=== PATIENT | male | born 1965 | race Caucasian/White ===

== ENCOUNTER 2019-06-07 21:11 | Inpatient (IN) | payer MEDICAID ==
[~2019-06-07] VITALS: Ht 180.3 cm; Wt 76.0 kg
[2019-06-07 22:24] LABS: GLUCOSE,POINT OF CARE 131 MG/DL (70-110)
[2019-06-08 00:40] LABS: BASOPHILS % (AUTO) 2.5 % (0.0-2.0); EOSINOPHILS % (AUTO) 1.8 % (1.0-6.0); HEMATOCRIT 24.6 % (41-53); HEMOGLOBIN 7.5 g/dL (13.5-17.5); LYMPHOCYTES # (AUTO) 1.4 K/uL (1.0-4.8); LYMPHOCYTES % (AUTO) 20.1 % (22.0-44.0); MEAN CORPUSCULAR HGB CONC 30.7 G/dL (31.0-37.0); MEAN CORPUSCULAR VOLUME 72 fL (80-100); MONOCYTES # (AUTO) 0.7 K/uL (0.1-1.0); MONOCYTES % (AUTO) 10.9 % (2.0-9.0); NEUTROPHILS # (AUTO) 4.4 K/uL (1.8-7.7); NEUTROPHILS % (AUTO) 64.7 % (40.0-70.0); PLATELET COUNT (AUTO) 194 K/uL (150-450); RED BLOOD CELL COUNT(AUTO) 3.42 MIL/uL (4.50-5.90); RED CELL DISTRIBUTION WIDTH 26.6 % (11.5-14.5)
[2019-06-08 00:43] LABS: CALCIUM, TOTAL 8.2 mg/dL (8.8-10.5); CREATININE 4.91 mg/dL (0.60-1.30); POTASSIUM 4.7 mmol/L (3.5-5.1)
[2019-06-08 00:45] LABS: INR 1.1 (0.9-1.1)
[2019-06-08 01:08] LABS: BILIRUBIN,TOTAL 0.2 mg/dL (0.1-1.0); TOTAL PROTEIN, SERUM 7.9 g/dL (6.4-8.2)
[2019-06-08] MEDS ORDERED: 0.9% SODIUM CHLORIDE 10 ML SYRINGE IVP PRN (01:15)
[2019-06-08] MEDS ORDERED: ACETAMINOPHEN 325 MG TABLET PO PRN ×2 (01:15→05:45)
[2019-06-08] MEDS ORDERED: ONDANSETRON HCL 4 MG/2 ML VIAL IVP PRN (01:15)
[2019-06-08 01:49] LABS: APPEARANCE,URINE CLEAR (CLEAR); BILIRUBIN,URINE NEGATIVE (NEGATIVE); GLUCOSE, URINE (UA) 100 mg/dL (NEGATIVE); KETONES,URINE NEGATIVE (NEGATIVE); LEUKOCYTE ESTERASE ,URINE NEGATIVE (NEGATIVE); NITRATE,URINE NEGATIVE (NEGATIVE); OCCULT BLOOD,URINE LARGE (NEGATIVE); PH,URINE 7.5 (5.0-8.0); PROTEIN,URINE SEE CONFIRM (NEGATIVE); UROBILINOGEN,URINE 0.2 mg/dL (<=1.0)
[2019-06-08 01:55] LABS: BACTERIA,URINE None Seen /HPF (None Seen); RBC,URINE 51-100 /HPF (0-2); SQUAMOUS EPITHELIAL CELL,UR Rare /LPF (None Seen); SULFOSALICYLIC ACID,URINE 4+ (Negative); WBC,URINE 0-2 /HPF (0-5)
[2019-06-08] MEDS ORDERED: LORazepam 2 MG/ML VIAL IVP ONE (03:15)
[2019-06-08] MEDS ORDERED: QUEtiapine FUMARATE 25 MG TABLET PO ONE (03:30)
[2019-06-08] MEDS ORDERED: DOXYCYCLINE HYCLATE 100 MG in DEXTROSE 5%-WATER 100 ML IV ONE (04:45)
[2019-06-08] MEDS ORDERED: CefTRIAXone 1 GM/DEXTROSE 50 ML IV ONE (04:45)
[2019-06-08] MEDS ORDERED: TraZODone HCL 50 MG TABLET PO ONE (04:45)
[2019-06-08] MEDS ORDERED: OxyCODONE HCL/ACETAMINOPHEN 5-325 MG TABLET PO ONE (04:45)
[2019-06-08] MEDS ORDERED: BISACODYL 10 MG RECTAL RECTAL SUPPOSITORY PR PRN (05:45)
[2019-06-08] MEDS: DOCUSATE SODIUM 100 MG CAPSULE PO SCH ×2 (09:00→20:39)
[2019-06-08] MEDS: HEPARIN SODIUM,PORCINE 5,000 UNITS/ML VIAL SQ SCH ×2 (09:00→20:40)
[2019-06-08] MEDS: FAMOTIDINE 20 MG TABLET PO SCH (09:00)
[2019-06-08 09:08] VITALS: BP 139/93
[2019-06-08] MEDS ORDERED: HYDROCODONE/ACETAMINOPHEN 5-325 MG TABLET PO PRN (09:15)
[2019-06-08 11:32] VITALS: BP 142/75
[2019-06-08] MEDS: SODIUM BICARBONATE 100 MEQ in SODIUM CHLORIDE 0.45% 1,000 ML IV SCH (14:54)
[2019-06-08] MEDS: QUEtiapine FUMARATE 25 MG TABLET PO SCH ×2 (15:53→20:39)
[2019-06-08 16:36] VITALS: BP 129/74
[2019-06-08 21:45] VITALS: BP 142/81
[2019-06-09] MEDS: SODIUM BICARBONATE 100 MEQ in SODIUM CHLORIDE 0.45% 1,000 ML IV SCH ×2 (03:10→20:13)
[2019-06-09 06:18] VITALS: BP 158/79
[2019-06-09 07:48] VITALS: BP 137/71
[2019-06-09] MEDS: FAMOTIDINE 20 MG TABLET PO SCH (07:59)
[2019-06-09] MEDS: VITAMIN B COMP/VIT C/FOLIC ACID CAPSULE PO SCH (07:59)
[2019-06-09] MEDS: DOCUSATE SODIUM 100 MG CAPSULE PO SCH ×2 (07:59→20:23)
[2019-06-09] MEDS: QUEtiapine FUMARATE 25 MG TABLET PO SCH (07:59)
[2019-06-09] MEDS: HEPARIN SODIUM,PORCINE 5,000 UNITS/ML VIAL SQ SCH ×2 (08:00→20:29)
[2019-06-09 09:04] LABS: AMPHET/METH SCREEN,URINE NEGATIVE (NEGATIVE); BARBITURATE SCREEN, URINE NEGATIVE (NEGATIVE); BENZODIAZEPINES SCREEN,URINE NEGATIVE (NEGATIVE); CANNABINOID SCREEN,URINE NEGATIVE (NEGATIVE); COCAINE SCREEN,URINE NEGATIVE (NEGATIVE); METHADONE SCREEN, URINE NEGATIVE (NEGATIVE); OPIATE SCREEN,URINE POSITIVE (NEGATIVE)
[2019-06-09 09:05] LABS: BASOPHILS % (AUTO) 2.1 % (0.0-2.0); EOSINOPHILS % (AUTO) 1.9 % (1.0-6.0); HEMATOCRIT 24.9 % (41-53); HEMOGLOBIN 7.8 g/dL (13.5-17.5); LYMPHOCYTES # (AUTO) 1.4 K/uL (1.0-4.8); LYMPHOCYTES % (AUTO) 22.1 % (22.0-44.0); MEAN CORPUSCULAR HEMOGLOBIN 22.3 pg (26.0-34.0); MEAN CORPUSCULAR HGB CONC 31.1 G/dL (31.0-37.0); MEAN CORPUSCULAR VOLUME 72 fL (80-100); MONOCYTES # (AUTO) 0.8 K/uL (0.1-1.0); MONOCYTES % (AUTO) 12.8 % (2.0-9.0); NEUTROPHILS # (AUTO) 3.9 K/uL (1.8-7.7); NEUTROPHILS % (AUTO) 61.1 % (40.0-70.0); PLATELET COUNT (AUTO) 210 K/uL (150-450); RED BLOOD CELL COUNT(AUTO) 3.48 MIL/uL (4.50-5.90); RED CELL DISTRIBUTION WIDTH 26.3 % (11.5-14.5)
[2019-06-09 09:06] LABS: PHENCYCLIDINE SCREEN,URINE NEGATIVE (NEGATIVE)
[2019-06-09 09:18] LABS: % IRON SATURATION 15.9 % (30-44)
[2019-06-09 09:22] LABS: ALBUMIN 1.8 g/dL (3.4-5.0); BILIRUBIN,TOTAL 0.2 mg/dL (0.1-1.0); CALCIUM, TOTAL 8.4 mg/dL (8.8-10.5); CREATININE 6.4 mg/dL (0.60-1.30); MAGNESIUM 1.6 mg/dL (1.80-2.40); PHOSPHORUS 4.7 mg/dL (2.5-4.9); POTASSIUM 5.1 mmol/L (3.5-5.1); TOTAL PROTEIN, SERUM 7.8 g/dL (6.4-8.2)
[2019-06-09 11:36] VITALS: BP 146/80
[2019-06-09] MEDS ORDERED: QUEtiapine FUMARATE 25 MG TABLET PO ONE (12:00)
[2019-06-09] MEDS: BUMETANIDE 0.25 MG/ML 4 ML VIAL IVP SCH ×2 (13:13→20:23)
[2019-06-09] MEDS: CefTRIAXone 1 GM/DEXTROSE 50 ML IV SCH (13:13)
[2019-06-09] MEDS: SOD FERRIC GLUC COMPLX/SUCROSE 125 MG in SODIUM CHLORIDE 0.9% 100 ML IV SCH (14:53)
[2019-06-09 15:42] VITALS: BP 155/84
[2019-06-09 20:20] VITALS: BP 142/85
[2019-06-09] MEDS: DOXYCYCLINE HYCLATE 100 MG CAPSULE PO SCH (20:22)
[2019-06-09] MEDS: QUEtiapine FUMARATE 100 MG TABLET PO SCH (20:23)
[2019-06-09 22:43] VITALS: BP 134/67
[2019-06-10 07:53] VITALS: BP 152/78
[2019-06-10] MEDS: DOCUSATE SODIUM 100 MG CAPSULE PO SCH ×2 (09:20→20:10)
[2019-06-10] MEDS: VITAMIN B COMP/VIT C/FOLIC ACID CAPSULE PO SCH (09:20)
[2019-06-10] MEDS: HEPARIN SODIUM,PORCINE 5,000 UNITS/ML VIAL SQ SCH ×2 (09:20→20:14)
[2019-06-10] MEDS: BUMETANIDE 0.25 MG/ML 4 ML VIAL IVP SCH ×2 (09:20→20:21)
[2019-06-10] MEDS: QUEtiapine FUMARATE 100 MG TABLET PO SCH ×2 (09:20→20:13)
[2019-06-10] MEDS: FAMOTIDINE 20 MG TABLET PO SCH (09:20)
[2019-06-10] MEDS: DOXYCYCLINE HYCLATE 100 MG CAPSULE PO SCH ×2 (09:20→20:10)
[2019-06-10] MEDS: SODIUM BICARBONATE 100 MEQ in SODIUM CHLORIDE 0.45% 1,000 ML IV SCH (10:15)
[2019-06-10] MEDS: EPOETIN ALFA 10,000 UNITS/ML VIAL SQ SCH (10:15)
[2019-06-10 11:22] VITALS: BP 140/76
[2019-06-10] MEDS: CefTRIAXone 1 GM/DEXTROSE 50 ML IV SCH (11:48)
[2019-06-10] MEDS: SOD FERRIC GLUC COMPLX/SUCROSE 125 MG in SODIUM CHLORIDE 0.9% 100 ML IV SCH (12:16)
[2019-06-10] MEDS ORDERED: SODIUM CHLORIDE 0.9% 250 ML IV ONE (12:18)
[2019-06-10 15:39] VITALS: BP 147/78
[2019-06-10 20:00] VITALS: BP 156/73
[2019-06-10] MEDS: TraMADol HCL 50 MG TABLET PO PRN (20:12)
[2019-06-10 23:27] VITALS: BP 131/77
[2019-06-11] MEDS: SODIUM BICARBONATE 100 MEQ in SODIUM CHLORIDE 0.45% 1,000 ML IV SCH ×2 (06:26→20:19)
[2019-06-11] MEDS ORDERED: LIDOCAINE/PF 1% 30 ML VIAL ONE (07:52)
[2019-06-11] MEDS ORDERED: LIDOCAINE 1%/EPI 1:200,000/PF 10 ML VIAL ONE ×2 (07:52→07:53)
[2019-06-11] MEDS ORDERED: HEPARIN SODIUM,PORCINE 1,000 UNITS/ML 10 ML VIAL ONE (07:52)
[2019-06-11] MEDS ORDERED: HEPARIN SODIUM 1000 UNITS/NS 500 ML ONE (07:52)
[2019-06-11 08:24] VITALS: BP 177/82
[2019-06-11 08:31] LABS: BASOPHILS % (AUTO) 1.9 % (0.0-2.0); EOSINOPHILS % (AUTO) 2.2 % (1.0-6.0); HEMATOCRIT 29.7 % (41-53); HEMOGLOBIN 9.1 g/dL (13.5-17.5); LYMPHOCYTES # (AUTO) 1.7 K/uL (1.0-4.8); LYMPHOCYTES % (AUTO) 27.1 % (22.0-44.0); MEAN CORPUSCULAR HEMOGLOBIN 22.1 pg (26.0-34.0); MEAN CORPUSCULAR HGB CONC 30.6 G/dL (31.0-37.0); MEAN CORPUSCULAR VOLUME 72 fL (80-100); MONOCYTES # (AUTO) 0.7 K/uL (0.1-1.0); MONOCYTES % (AUTO) 10.8 % (2.0-9.0); NEUTROPHILS # (AUTO) 3.7 K/uL (1.8-7.7); PLATELET COUNT (AUTO) 268 K/uL (150-450); RED BLOOD CELL COUNT(AUTO) 4.12 MIL/uL (4.50-5.90); RED CELL DISTRIBUTION WIDTH 26.1 % (11.5-14.5)
[2019-06-11 08:44] LABS: CALCIUM, TOTAL 8.6 mg/dL (8.8-10.5); CREATININE 7.8 mg/dL (0.60-1.30); POTASSIUM 5.5 mmol/L (3.5-5.1)
[2019-06-11] MEDS: HEPARIN SODIUM,PORCINE 5,000 UNITS/ML VIAL SQ SCH ×2 (09:00→20:17)
[2019-06-11] MEDS: DOCUSATE SODIUM 100 MG CAPSULE PO SCH ×2 (09:00→20:16)
[2019-06-11] MEDS: FAMOTIDINE 20 MG TABLET PO SCH (09:00)
[2019-06-11] MEDS: DOXYCYCLINE HYCLATE 100 MG CAPSULE PO SCH ×2 (09:00→20:16)
[2019-06-11] MEDS: VITAMIN B COMP/VIT C/FOLIC ACID CAPSULE PO SCH (09:00)
[2019-06-11] MEDS: QUEtiapine FUMARATE 100 MG TABLET PO SCH ×2 (09:00→20:17)
[2019-06-11] MEDS: BUMETANIDE 0.25 MG/ML 4 ML VIAL IVP SCH ×2 (09:03→20:16)
[2019-06-11] MEDS ORDERED: FentaNYL CITRATE-PF 100 MCG/2 ML VIAL ONE (09:47)
[2019-06-11] MEDS ORDERED: MIDAZOLAM HCL 2 MG/2 ML VIAL ONE ×2 (09:47→10:19)
[2019-06-11] MEDS ORDERED: CeFAZolin 1 GM/DEXTROSE 50 ML IV ONE ×2 (09:58→10:15)
[2019-06-11] MEDS ORDERED: FentaNYL CITRATE-PF 100 MCG/2 ML VIAL IVP ONE ×3 (10:15→10:45)
[2019-06-11] MEDS ORDERED: MIDAZOLAM HCL 2 MG/2 ML VIAL IVP ONE ×2 (10:15→10:45)
[2019-06-11 11:05] VITALS: BP 170/91
[2019-06-11] MEDS: CefTRIAXone 1 GM/DEXTROSE 50 ML IV SCH (11:51)
[2019-06-11] MEDS: SOD FERRIC GLUC COMPLX/SUCROSE 125 MG in SODIUM CHLORIDE 0.9% 100 ML IV SCH (11:51)
[2019-06-11 14:45] VITALS: BP 144/68
[2019-06-11] MEDS: TraMADol HCL 50 MG TABLET PO PRN (19:03)
[2019-06-11 19:16] VITALS: BP 173/82
[2019-06-12] MEDS: QUEtiapine FUMARATE 100 MG TABLET PO SCH ×2 (08:03→19:41)
[2019-06-12] MEDS: TraMADol HCL 50 MG TABLET PO PRN ×2 (08:04→20:53)
[2019-06-12] MEDS: HEPARIN SODIUM,PORCINE 5,000 UNITS/ML VIAL SQ SCH ×3 (09:00→19:41)
[2019-06-12] MEDS ORDERED: SODIUM CHLORIDE 0.9% 2,000 ML IV ONE (09:20)
[2019-06-12] MEDS: ONDANSETRON HCL 4 MG/2 ML VIAL IVP PRN (10:30)
[2019-06-12 11:41] VITALS: BP 138/79
[2019-06-12] MEDS: VITAMIN B COMP/VIT C/FOLIC ACID CAPSULE PO SCH (11:47)
[2019-06-12] MEDS: FAMOTIDINE 20 MG TABLET PO SCH (11:47)
[2019-06-12] MEDS: DOXYCYCLINE HYCLATE 100 MG CAPSULE PO SCH ×2 (11:48→19:41)
[2019-06-12] MEDS: DOCUSATE SODIUM 100 MG CAPSULE PO SCH ×2 (11:48→19:41)
[2019-06-12] MEDS: EPOETIN ALFA 10,000 UNITS/ML VIAL SQ SCH (11:49)
[2019-06-12] MEDS: SOD FERRIC GLUC COMPLX/SUCROSE 125 MG in SODIUM CHLORIDE 0.9% 100 ML IV SCH (11:50)
[2019-06-12] MEDS: BUMETANIDE 0.25 MG/ML 4 ML VIAL IVP SCH ×2 (11:50→20:22)
[2019-06-12] MEDS ORDERED: SODIUM POLYSTYRENE SULFONATE 15 GM/60 ML SUSPENSION BOTTLE PO ONE (12:45)
[2019-06-12] MEDS: CefTRIAXone 1 GM/DEXTROSE 50 ML IV SCH (13:35)
[2019-06-12] MEDS: HYDROmorphone 2 MG/ML SYRINGE IVP PRN ×2 (16:03→23:54)
[2019-06-12 16:34] VITALS: BP 148/79
[2019-06-12] MEDS ORDERED: HEPARIN SODIUM,PORCINE 1,000 UNITS/ML VIAL IVP ONE (17:06)
[2019-06-12 19:56] VITALS: BP 162/76
[2019-06-12] MEDS: SODIUM BICARBONATE 100 MEQ in SODIUM CHLORIDE 0.45% 1,000 ML IV SCH (23:52)
[2019-06-13 00:07] VITALS: BP 147/68
[2019-06-13] MEDS: HYDROmorphone 2 MG/ML SYRINGE IVP PRN ×2 (07:50→15:45)
[2019-06-13] MEDS: FAMOTIDINE 20 MG TABLET PO SCH (07:50)
[2019-06-13] MEDS: QUEtiapine FUMARATE 100 MG TABLET PO SCH ×2 (07:50→19:52)
[2019-06-13] MEDS: DOCUSATE SODIUM 100 MG CAPSULE PO SCH ×2 (07:50→19:52)
[2019-06-13] MEDS: HEPARIN SODIUM,PORCINE 5,000 UNITS/ML VIAL SQ SCH ×2 (07:50→19:53)
[2019-06-13] MEDS: VITAMIN B COMP/VIT C/FOLIC ACID CAPSULE PO SCH (07:50)
[2019-06-13] MEDS: DOXYCYCLINE HYCLATE 100 MG CAPSULE PO SCH ×2 (07:50→19:52)
[2019-06-13] MEDS: BUMETANIDE 0.25 MG/ML 4 ML VIAL IVP SCH ×2 (07:51→19:53)
[2019-06-13 08:03] VITALS: BP 163/87
[2019-06-13 08:30] LABS: BASOPHILS % (AUTO) 1.6 % (0.0-2.0); EOSINOPHILS % (AUTO) 2.5 % (1.0-6.0); HEMOGLOBIN 8.7 g/dL (13.5-17.5); LYMPHOCYTES # (AUTO) 1.2 K/uL (1.0-4.8); LYMPHOCYTES % (AUTO) 21.2 % (22.0-44.0); MEAN CORPUSCULAR HEMOGLOBIN 22.6 pg (26.0-34.0); MEAN CORPUSCULAR HGB CONC 31.2 G/dL (31.0-37.0); MEAN CORPUSCULAR VOLUME 73 fL (80-100); MONOCYTES # (AUTO) 0.5 K/uL (0.1-1.0); MONOCYTES % (AUTO) 7.9 % (2.0-9.0); NEUTROPHILS # (AUTO) 3.8 K/uL (1.8-7.7); NEUTROPHILS % (AUTO) 66.8 % (40.0-70.0); PLATELET COUNT (AUTO) 267 K/uL (150-450); RED BLOOD CELL COUNT(AUTO) 3.86 MIL/uL (4.50-5.90); RED CELL DISTRIBUTION WIDTH 25.8 % (11.5-14.5)
[2019-06-13 08:37] LABS: CALCIUM, TOTAL 8.5 mg/dL (8.8-10.5); CREATININE 7.79 mg/dL (0.60-1.30); POTASSIUM 4.7 mmol/L (3.5-5.1)
[2019-06-13 08:54] LABS: PLATELET MORPHOLOGY COMMENT LARGE PLTS PRESENT
[2019-06-13] MEDS ORDERED: SODIUM CHLORIDE 0.9% 2,000 ML IV ONE (09:03)
[2019-06-13] MEDS: TraMADol HCL 50 MG TABLET PO PRN (11:52)
[2019-06-13] MEDS: ONDANSETRON HCL 4 MG/2 ML VIAL IVP PRN (12:05)
[2019-06-13] MEDS: SOD FERRIC GLUC COMPLX/SUCROSE 125 MG in SODIUM CHLORIDE 0.9% 100 ML IV SCH (14:29)
[2019-06-13] MEDS: CefTRIAXone 1 GM/DEXTROSE 50 ML IV SCH (15:45)
[2019-06-13 17:00] VITALS: BP 156/96
[2019-06-13] MEDS ORDERED: HEPARIN SODIUM,PORCINE 1,000 UNITS/ML VIAL ONE (18:12)
[2019-06-13 19:50] VITALS: BP 148/73
[2019-06-13 23:45] VITALS: BP 139/77
[2019-06-14 04:30] VITALS: BP 147/76
[2019-06-14] MEDS: HYDROmorphone 2 MG/ML SYRINGE IVP PRN ×3 (06:43→23:26)
[2019-06-14] MEDS: ONDANSETRON HCL 4 MG/2 ML VIAL IVP PRN (06:49)
[2019-06-14 08:20] VITALS: BP 167/93
[2019-06-14] MEDS: QUEtiapine FUMARATE 100 MG TABLET PO SCH (09:00)
[2019-06-14] MEDS: DOXYCYCLINE HYCLATE 100 MG CAPSULE PO SCH ×2 (09:00→20:18)
[2019-06-14] MEDS: RisperiDONE 1 MG TABLET PO SCH ×2 (09:00→20:18)
[2019-06-14] MEDS: BUMETANIDE 0.25 MG/ML 4 ML VIAL IVP SCH ×2 (10:48→20:18)
[2019-06-14] MEDS: HEPARIN SODIUM,PORCINE 5,000 UNITS/ML VIAL SQ SCH ×2 (10:48→20:19)
[2019-06-14] MEDS: DOCUSATE SODIUM 100 MG CAPSULE PO SCH ×2 (10:49→20:18)
[2019-06-14] MEDS: FAMOTIDINE 20 MG TABLET PO SCH (10:49)
[2019-06-14] MEDS: VITAMIN B COMP/VIT C/FOLIC ACID CAPSULE PO SCH (10:49)
[2019-06-14] MEDS: EPOETIN ALFA 10,000 UNITS/ML VIAL SQ SCH (10:54)
[2019-06-14] MEDS ORDERED: SODIUM CHLORIDE 0.9% 250 ML IV ONE (10:59)
[2019-06-14] MEDS: SOD FERRIC GLUC COMPLX/SUCROSE 125 MG in SODIUM CHLORIDE 0.9% 100 ML IV SCH (11:22)
[2019-06-14 12:30] VITALS: BP 154/74
[2019-06-14] MEDS: CefTRIAXone 1 GM/DEXTROSE 50 ML IV SCH (13:45)
[2019-06-14 16:38] VITALS: BP 128/89
[2019-06-14] MEDS: SODIUM BICARBONATE 100 MEQ in SODIUM CHLORIDE 0.45% 1,000 ML IV SCH (19:12)
[2019-06-14] MEDS: QUEtiapine FUMARATE 200 MG TABLET PO SCH (21:20)
[2019-06-14] MEDS: TraZODone HCL 100 MG TABLET PO SCH (21:20)
[2019-06-15 00:24] VITALS: BP 144/86
[2019-06-15] MEDS: SODIUM BICARBONATE 100 MEQ in SODIUM CHLORIDE 0.45% 1,000 ML IV SCH (00:37)
[2019-06-15 08:07] VITALS: BP 163/84
[2019-06-15] MEDS: QUEtiapine FUMARATE 200 MG TABLET PO SCH ×2 (08:10→20:03)
[2019-06-15] MEDS: DOXYCYCLINE HYCLATE 100 MG CAPSULE PO SCH ×2 (08:10→20:03)
[2019-06-15] MEDS: FAMOTIDINE 20 MG TABLET PO SCH (08:10)
[2019-06-15] MEDS: VITAMIN B COMP/VIT C/FOLIC ACID CAPSULE PO SCH (08:10)
[2019-06-15] MEDS: RisperiDONE 1 MG TABLET PO SCH ×2 (08:10→20:03)
[2019-06-15] MEDS: DOCUSATE SODIUM 100 MG CAPSULE PO SCH ×2 (08:10→20:03)
[2019-06-15] MEDS: HEPARIN SODIUM,PORCINE 5,000 UNITS/ML VIAL SQ SCH ×2 (08:11→20:04)
[2019-06-15] MEDS: BUMETANIDE 0.25 MG/ML 4 ML VIAL IVP SCH ×2 (08:11→20:03)
[2019-06-15] MEDS: ONDANSETRON HCL 4 MG/2 ML VIAL IVP PRN (10:23)
[2019-06-15] MEDS: SOD FERRIC GLUC COMPLX/SUCROSE 125 MG in SODIUM CHLORIDE 0.9% 100 ML IV SCH (11:02)
[2019-06-15 11:19] VITALS: BP 153/78
[2019-06-15] MEDS ORDERED: SODIUM CHLORIDE 0.9% 2,000 ML IV ONE (13:02)
[2019-06-15] MEDS: HYDROmorphone 2 MG/ML SYRINGE IVP PRN ×2 (13:10→20:51)
[2019-06-15] MEDS: SUMAtriptan SUCCINATE 25 MG TABLET PO PRN (17:28)
[2019-06-15] MEDS ORDERED: HEPARIN SODIUM,PORCINE 1,000 UNITS/ML VIAL IVP ONE (18:14)
[2019-06-15] MEDS: CefTRIAXone 1 GM/DEXTROSE 50 ML IV SCH (18:34)
[2019-06-15 19:14] VITALS: BP 148/88
[2019-06-15] MEDS: TraZODone HCL 100 MG TABLET PO SCH (20:03)
[2019-06-16 03:58] VITALS: BP 179/76
[2019-06-16 07:27] VITALS: BP 164/94
[2019-06-16] MEDS: FAMOTIDINE 20 MG TABLET PO SCH (08:31)
[2019-06-16] MEDS: DOXYCYCLINE HYCLATE 100 MG CAPSULE PO SCH ×2 (08:31→20:07)
[2019-06-16] MEDS: QUEtiapine FUMARATE 200 MG TABLET PO SCH ×2 (08:31→20:08)
[2019-06-16] MEDS: DOCUSATE SODIUM 100 MG CAPSULE PO SCH ×2 (08:31→20:08)
[2019-06-16] MEDS: RisperiDONE 1 MG TABLET PO SCH ×2 (08:31→20:07)
[2019-06-16] MEDS: VITAMIN B COMP/VIT C/FOLIC ACID CAPSULE PO SCH (08:31)
[2019-06-16] MEDS: BUMETANIDE 0.25 MG/ML 4 ML VIAL IVP SCH ×2 (08:32→20:09)
[2019-06-16] MEDS: HEPARIN SODIUM,PORCINE 5,000 UNITS/ML VIAL SQ SCH ×2 (08:32→20:08)
[2019-06-16] MEDS: AmLODIPine BESYLATE 5 MG TABLET PO SCH (10:49)
[2019-06-16] MEDS: SOD FERRIC GLUC COMPLX/SUCROSE 125 MG in SODIUM CHLORIDE 0.9% 100 ML IV SCH (11:09)
[2019-06-16] MEDS: HYDROmorphone 2 MG/ML SYRINGE IVP PRN ×2 (11:09→18:57)
[2019-06-16 11:11] VITALS: BP 153/74
[2019-06-16] MEDS ORDERED: SODIUM CHLORIDE 0.9% 500 ML IV ONE (11:13)
[2019-06-16] MEDS: TraMADol HCL 50 MG TABLET PO PRN (16:26)
[2019-06-16] MEDS: CefTRIAXone 1 GM/DEXTROSE 50 ML IV SCH (18:13)
[2019-06-16] MEDS: TraZODone HCL 100 MG TABLET PO SCH (20:07)
[2019-06-16 20:36] VITALS: BP 144/77
[2019-06-17] MEDS: HYDROmorphone 2 MG/ML SYRINGE IVP PRN ×2 (02:47→10:36)
[2019-06-17] MEDS: ONDANSETRON HCL 4 MG/2 ML VIAL IVP PRN (03:03)
[2019-06-17] MEDS: SUMAtriptan SUCCINATE 25 MG TABLET PO PRN (05:08)
[2019-06-17] MEDS: BUMETANIDE 0.25 MG/ML 4 ML VIAL IVP SCH (07:33)
[2019-06-17] MEDS: RisperiDONE 1 MG TABLET PO SCH (07:33)
[2019-06-17] MEDS: VITAMIN B COMP/VIT C/FOLIC ACID CAPSULE PO SCH (07:34)
[2019-06-17] MEDS: QUEtiapine FUMARATE 200 MG TABLET PO SCH (07:34)
[2019-06-17] MEDS: FAMOTIDINE 20 MG TABLET PO SCH (07:34)
[2019-06-17] MEDS: HEPARIN SODIUM,PORCINE 5,000 UNITS/ML VIAL SQ SCH (07:34)
[2019-06-17] MEDS: DOCUSATE SODIUM 100 MG CAPSULE PO SCH (07:34)
[2019-06-17] MEDS: DOXYCYCLINE HYCLATE 100 MG CAPSULE PO SCH (07:34)
[2019-06-17] MEDS: AmLODIPine BESYLATE 5 MG TABLET PO SCH (07:35)
[2019-06-17 07:56] VITALS: BP 186/87
[2019-06-17] MEDS: EPOETIN ALFA 10,000 UNITS/ML VIAL SQ SCH (09:00)
[2019-06-17 11:13] VITALS: BP 170/86
[2019-06-17] MEDS ORDERED: BUME1TAB34 PO (14:35)
[2019-06-17] MEDS ORDERED: FAMO20 PO (14:35)
[2019-06-17] MEDS ORDERED: AMLO5TAB9 PO (14:35)
[2019-06-17] MEDS ORDERED: QUET200T PO (14:36)
[2019-06-17] MEDS ORDERED: TRAZ-220 PO (14:36)
[2019-06-17] MEDS ORDERED: RISP1 PO (14:36)
[2019-06-17] MEDS ORDERED: FOLI1TAB61 PO (14:41)
[2019-06-17 16:52] VITALS: BP 153/82
[2019-06-17] MEDS: TraMADol HCL 50 MG TABLET PO PRN (17:50)
[2019-06-17] MEDS ORDERED: HEPARIN SODIUM,PORCINE 1,000 UNITS/ML VIAL ONE (18:18)
== END 2019-06-17 18:30 | disposition home or self-care (01) | DRG 346 ==
LOC: EMS 21:13 → 5S 06-08 05:14 → 4E 06-08 08:12 → 6S 06-17 13:10
PROVIDERS: ADMIT Internal Medicine; ATTEND Internal Medicine
PROC: 0JH63XZ Insertion of Tunneled Vascular Access Device into Chest Subcutaneous Tissue and Fascia, Percutaneous Approach (ICD-10-PCS; principal; 2019-06-11)
PROC: 02HV33Z Insertion of Infusion Device into Superior Vena Cava, Percutaneous Approach (ICD-10-PCS; 2019-06-11)
PROC: B5181ZA Fluoroscopy of Superior Vena Cava using Low Osmolar Contrast, Guidance (ICD-10-PCS; 2019-06-11)
PROC: B548ZZA Ultrasonography of Superior Vena Cava, Guidance (ICD-10-PCS; 2019-06-11)
PROC: 5A1D70Z Performance of Urinary Filtration, Intermittent, Less than 6 Hours Per Day (ICD-10-PCS; 2019-06-12)
PROC: 5A1D70Z Performance of Urinary Filtration, Intermittent, Less than 6 Hours Per Day (ICD-10-PCS; 2019-06-13)
PROC: 5A1D70Z Performance of Urinary Filtration, Intermittent, Less than 6 Hours Per Day (ICD-10-PCS; 2019-06-15)
PROC: 5A1D70Z Performance of Urinary Filtration, Intermittent, Less than 6 Hours Per Day (ICD-10-PCS; 2019-06-17)
DX: E85.89 Other amyloidosis (principal); E43 Unspecified severe protein-calorie malnutrition; C91.10 Chronic lymphocytic leukemia of B-cell type not having achieved remission; M86.8X7 Other osteomyelitis, ankle and foot; E87.5 Hyperkalemia; F11.20 Opioid dependence, uncomplicated; I12.0 Hypertensive chronic kidney disease with stage 5 chronic kidney disease or end stage renal disease; F20.9 Schizophrenia, unspecified; N18.6 End stage renal disease; I89.0 Lymphedema, not elsewhere classified; D63.8 Anemia in other chronic diseases classified elsewhere; B19.20 Unspecified viral hepatitis C without hepatic coma; D64.9 Anemia, unspecified; B95.61 Methicillin susceptible Staphylococcus aureus infection as the cause of diseases classified elsewhere; F43.10 Post-traumatic stress disorder, unspecified; Z85.72 Personal history of non-Hodgkin lymphomas; Z91.19 Patient's noncompliance with other medical treatment and regimen; Z99.2 Dependence on renal dialysis; Z91.010 Allergy to peanuts; Z68.23 Body mass index [BMI] 23.0-23.9, adult
CPT/HCPCS: 36245; 36561; 76770; 76937; 80307; 83540; 83550; 83735; 84100; 85651; 87081; 87340; 93005; G0378; J0690; J0696; J0885; J1170; J1644; J2250; J2405; J2916; J3010; J3490; J7030; J7040; J7050; J7060

== ENCOUNTER 2019-06-17 20:56 | Emergency (ER) | payer MEDICAID ==
[~2019-06-17] VITALS: Ht 175.3 cm; Wt 79.5 kg
[~2019-06-17 20:56] MED LIST: AMLO5TAB9 PO; BUME1TAB34 PO; FAMO20 PO; FOLI1TAB61 PO; QUET200T PO; RISP1 PO; TRAZ-220 PO
[2019-06-17] MEDS ORDERED: BARIUM SULFATE 0.1% SUSPENSION 450 ML BOTTLE PO ONE (22:15)
[2019-06-17] MEDS ORDERED: HYDROmorphone 2 MG/ML SYRINGE IVP ONE (22:15)
[2019-06-17] MEDS ORDERED: ONDANSETRON HCL 4 MG/2 ML VIAL IVP ONE (22:15)
[2019-06-17] MEDS ORDERED: SODIUM CHLORIDE 0.9% 100 ML ONE (22:22)
[2019-06-17] MEDS ORDERED: IOVERSOL 350 MG/ML 100 ML VIAL ONE (22:22)
[2019-06-17 22:29] LABS: CALCIUM, TOTAL 8.7 mg/dL (8.8-10.5); CREATININE 4.64 mg/dL (0.60-1.30); POTASSIUM 5.2 mmol/L (3.5-5.1)
[2019-06-17 22:32] LABS: BASOPHILS % (AUTO) 0.7 % (0.0-2.0); EOSINOPHILS % (AUTO) 2.3 % (1.0-6.0); HEMATOCRIT 29.6 % (41-53); HEMOGLOBIN 9.3 g/dL (13.5-17.5); LYMPHOCYTES # (AUTO) 1.4 K/uL (1.0-4.8); LYMPHOCYTES % (AUTO) 19.9 % (22.0-44.0); MEAN CORPUSCULAR HEMOGLOBIN 23.9 pg (26.0-34.0); MEAN CORPUSCULAR HGB CONC 31.4 G/dL (31.0-37.0); MEAN CORPUSCULAR VOLUME 76 fL (80-100); MONOCYTES # (AUTO) 1.1 K/uL (0.1-1.0); NEUTROPHILS # (AUTO) 4.4 K/uL (1.8-7.7); NEUTROPHILS % (AUTO) 62.1 % (40.0-70.0); PLATELET COUNT (AUTO) 200 K/uL (150-450); RED BLOOD CELL COUNT(AUTO) 3.89 MIL/uL (4.50-5.90); RED CELL DISTRIBUTION WIDTH 28.9 % (11.5-14.5)
[2019-06-17 22:38] LABS: ALBUMIN 2.3 g/dL (3.4-5.0); BILIRUBIN,TOTAL 0.2 mg/dL (0.1-1.0); TOTAL PROTEIN, SERUM 8.2 g/dL (6.4-8.2)
[2019-06-18 02:35] VITALS: BP 141/77
[2019-06-18] MEDS ORDERED: POLYETHYLENE GLYCOL 3350 17 GM PACKET PO ONE (03:30)
== END 2019-06-18 03:42 | disposition home or self-care (01) ==
LOC: EMS 20:57
DX: K59.00 Constipation, unspecified (principal); N18.6 End stage renal disease; F17.210 Nicotine dependence, cigarettes, uncomplicated; Z88.5 Allergy status to narcotic agent; Z91.010 Allergy to peanuts; Z99.2 Dependence on renal dialysis
CPT/HCPCS: 36415; 74177; 80053; 83690; 83880; 84484; 85025; 93005; 96374; 96375; 99284; J1170; J2405; J7050; Q9967

== ENCOUNTER 2019-06-19 20:47 | Emergency (ER) | payer MEDICAID | END 2019-06-19 20:55 | disposition left against medical advice (07) | LOC: EDUNIT# 20:47 → EMS 20:48 | DX: R06.02 Shortness of breath (principal); Z53.21 Procedure and treatment not carried out due to patient leaving prior to being seen by health care provider ==

== ENCOUNTER 2019-06-20 15:16 | Emergency (ER) | payer MEDICAID ==
[~2019-06-20] VITALS: Ht 180.3 cm; Wt 81.8 kg
[2019-06-20 15:28] VITALS: BP 154/109
== END 2019-06-20 18:18 | disposition left against medical advice (07) ==
LOC: EMS 15:16
DX: R06.02 Shortness of breath (principal); R07.9 Chest pain, unspecified; F17.210 Nicotine dependence, cigarettes, uncomplicated; Z53.21 Procedure and treatment not carried out due to patient leaving prior to being seen by health care provider
CPT/HCPCS: 93005

== ENCOUNTER 2019-06-20 18:42 | Emergency (ER) | payer MEDICAID | END 2019-06-20 19:10 | disposition left against medical advice (07) | LOC: EMS 18:43 | DX: N18.6 End stage renal disease (principal); G89.29 Other chronic pain; F17.210 Nicotine dependence, cigarettes, uncomplicated; Z99.2 Dependence on renal dialysis; Z88.5 Allergy status to narcotic agent; Z91.010 Allergy to peanuts ==

== ENCOUNTER 2019-06-21 07:20 | Emergency (ER) | payer MEDICAID ==
[~2019-06-21] VITALS: Ht 180.3 cm; Wt 81.8 kg
[2019-06-21] MEDS ORDERED: HYDROmorphone 2 MG/ML SYRINGE IVP ONE (08:45)
[2019-06-21 08:49] LABS: HEMATOCRIT 30.6 % (41-53); HEMOGLOBIN 9.9 g/dL (13.5-17.5); MEAN CORPUSCULAR HEMOGLOBIN 24.8 pg (26.0-34.0); MEAN CORPUSCULAR HGB CONC 32.4 G/dL (31.0-37.0); MEAN CORPUSCULAR VOLUME 77 fL (80-100); MONOCYTES # (AUTO) 0.6 K/uL (0.1-1.0); NEUTROPHILS # (AUTO) 4.7 K/uL (1.8-7.7); PLATELET COUNT (AUTO) 195 K/uL (150-450)
[2019-06-21 08:50] VITALS: BP 159/89
[2019-06-21 09:18] LABS: APPEARANCE,URINE CLEAR (CLEAR); BILIRUBIN,URINE NEGATIVE (NEGATIVE); GLUCOSE, URINE (UA) 250 mg/dL (NEGATIVE); KETONES,URINE NEGATIVE (NEGATIVE); LEUKOCYTE ESTERASE ,URINE NEGATIVE (NEGATIVE); NITRATE,URINE NEGATIVE (NEGATIVE); OCCULT BLOOD,URINE LARGE (NEGATIVE); PROTEIN,URINE SEE CONFIRM (NEGATIVE); UROBILINOGEN,URINE 0.2 mg/dL (<=1.0)
[2019-06-21 09:24] LABS: ALBUMIN 2.6 g/dL (3.4-5.0); BILIRUBIN,TOTAL 0.3 mg/dL (0.1-1.0); CALCIUM, TOTAL 8.7 mg/dL (8.8-10.5); CREATININE 7.75 mg/dL (0.60-1.30); POTASSIUM 5.8 mmol/L (3.5-5.1); TOTAL PROTEIN, SERUM 8.5 g/dL (6.4-8.2)
[2019-06-21 09:25] LABS: SULFOSALICYLIC ACID,URINE 3+ (Negative); WBC,URINE None Seen /HPF (0-5)
[2019-06-21 09:26] LABS: BACTERIA,URINE None Seen /HPF (None Seen); RBC,URINE 26-50 /HPF (0-2)
== END 2019-06-21 09:55 | disposition left against medical advice (07) ==
LOC: EMS 07:22
DX: N18.6 End stage renal disease (principal); E87.5 Hyperkalemia; F17.210 Nicotine dependence, cigarettes, uncomplicated; Z99.2 Dependence on renal dialysis; Z76.5 Malingerer [conscious simulation]; Z88.5 Allergy status to narcotic agent; Z91.010 Allergy to peanuts; Z79.899 Other long term (current) drug therapy
CPT/HCPCS: 36415; 80053; 81001; 82550; 83690; 84484; 85025; 93005; 96374; 99284; J1170

== ENCOUNTER 2019-06-21 18:45 | Inpatient (IN) | payer MEDICAID ==
[~2019-06-21] VITALS: Ht 180.3 cm; Wt 77.8 kg
[~2019-06-21 18:45] MED LIST changes: +HEPARIN SODIUM,PORCINE 1,000 UNITS/ML VIAL IVP ONE
[2019-06-21] MEDS ORDERED: ACETAMINOPHEN 325 MG TABLET PO PRN (19:30)
[2019-06-21] MEDS ORDERED: BISACODYL 10 MG RECTAL RECTAL SUPPOSITORY PR PRN (19:30)
[2019-06-21] MEDS ORDERED: LORazepam 2 MG/ML VIAL IVP ONE (19:30)
[2019-06-21 19:39] LABS: BASOPHILS % (AUTO) 1.9 % (0.0-2.0); EOSINOPHILS % (AUTO) 1.7 % (1.0-6.0); HEMATOCRIT 30.2 % (41-53); HEMOGLOBIN 9.6 g/dL (13.5-17.5); LYMPHOCYTES # (AUTO) 1.3 K/uL (1.0-4.8); LYMPHOCYTES % (AUTO) 19.4 % (22.0-44.0); MEAN CORPUSCULAR HEMOGLOBIN 24.3 pg (26.0-34.0); MEAN CORPUSCULAR HGB CONC 31.8 G/dL (31.0-37.0); MEAN CORPUSCULAR VOLUME 77 fL (80-100); MONOCYTES # (AUTO) 0.8 K/uL (0.1-1.0); MONOCYTES % (AUTO) 11.9 % (2.0-9.0); NEUTROPHILS # (AUTO) 4.5 K/uL (1.8-7.7); NEUTROPHILS % (AUTO) 65.1 % (40.0-70.0); PLATELET COUNT (AUTO) 186 K/uL (150-450); RED BLOOD CELL COUNT(AUTO) 3.95 MIL/uL (4.50-5.90); RED CELL DISTRIBUTION WIDTH 28.7 % (11.5-14.5)
[2019-06-21 19:57] LABS: ALANINE AMINOTRANSFERASE 12 U/L (12-78); ALBUMIN 2.8 g/dL (3.4-5.0); ALKALINE PHOSPHATASE 72 U/L (46-116); ANION GAP 14 mmol/L (8-16); ASPARTATE AMINOTRANSFERASE 26 U/L (15-37); BILIRUBIN,TOTAL 0.3 mg/dL (0.1-1.0); CALCIUM, TOTAL 8.8 mg/dL (8.8-10.5); CARBON DIOXIDE 19 mmol/L (22-29); CHLORIDE 101 mmol/L (98-107); CREATININE 7.88 mg/dL (0.60-1.30); GLOMERULAR FILTR. RATE CALC 7 mL/min (>60); GLUCOSE,RANDOM 121 mg/dL (70-110); LIPASE 474 U/L (73-393); SODIUM SERUM 134 mmol/L (136-145); TOTAL PROTEIN, SERUM 8.7 g/dL (6.4-8.2)
[2019-06-21] MEDS ORDERED: VANCOMYCIN HCL 1 GM/D5% WATER 200 ML IV ONE (20:00)
[2019-06-21] MEDS ORDERED: VANCOMYCIN HCL 1 GM/D5% WATER 200 ML IV PRN (20:00)
[2019-06-21 20:03] LABS: POTASSIUM 6.1 mmol/L (3.5-5.1)
[2019-06-21 20:04] LABS: UREA NITROGEN, BLOOD 102 mg/dL (7-18)
[2019-06-21 20:16] LABS: B-TYPE NATRIURETIC PEPTIDE 592 pg/mL (0-100)
[2019-06-21] MEDS: DOCUSATE SODIUM 100 MG CAPSULE PO SCH (21:00)
[2019-06-21] MEDS: HEPARIN SODIUM,PORCINE 5,000 UNITS/ML VIAL SQ SCH (21:00)
[2019-06-21] MEDS ORDERED: SODIUM CHLORIDE 0.9% 2,000 ML IV ONE (21:30)
[2019-06-21 21:35] VITALS: BP 149/91
[2019-06-22] VITALS (8 sets, daily range): BP systolic 145–171; BP diastolic 79–101
[2019-06-22] MEDS ORDERED: SODIUM CHLORIDE 0.9% 250 ML IV ONE (00:27)
[2019-06-22] MEDS: ONDANSETRON HCL 4 MG/2 ML VIAL IVP PRN ×3 (00:35→13:52)
[2019-06-22] MEDS: BUMETANIDE 0.25 MG/ML 4 ML VIAL IVP SCH ×3 (00:48→20:29)
[2019-06-22 04:13] LABS: AMPHET/METH SCREEN,URINE NEGATIVE (NEGATIVE); BARBITURATE SCREEN, URINE NEGATIVE (NEGATIVE); BENZODIAZEPINES SCREEN,URINE NEGATIVE (NEGATIVE); CANNABINOID SCREEN,URINE NEGATIVE (NEGATIVE); COCAINE SCREEN,URINE NEGATIVE (NEGATIVE); METHADONE SCREEN, URINE NEGATIVE (NEGATIVE); OPIATE SCREEN,URINE NEGATIVE (NEGATIVE)
[2019-06-22 04:41] LABS: PHENCYCLIDINE SCREEN,URINE NEGATIVE (NEGATIVE)
[2019-06-22 06:54] LABS: EOSINOPHILS % (AUTO) 2.4 % (1.0-6.0); HEMATOCRIT 30.5 % (41-53); HEMOGLOBIN 9.7 g/dL (13.5-17.5); LYMPHOCYTES # (AUTO) 1.5 K/uL (1.0-4.8); LYMPHOCYTES % (AUTO) 23.7 % (22.0-44.0); MEAN CORPUSCULAR HEMOGLOBIN 24.1 pg (26.0-34.0); MEAN CORPUSCULAR HGB CONC 31.9 G/dL (31.0-37.0); MEAN CORPUSCULAR VOLUME 76 fL (80-100); MONOCYTES # (AUTO) 0.9 K/uL (0.1-1.0); MONOCYTES % (AUTO) 14.9 % (2.0-9.0); NEUTROPHILS # (AUTO) 3.6 K/uL (1.8-7.7); PLATELET COUNT (AUTO) 193 K/uL (150-450); RED BLOOD CELL COUNT(AUTO) 4.04 MIL/uL (4.50-5.90); RED CELL DISTRIBUTION WIDTH 28.2 % (11.5-14.5)
[2019-06-22 07:22] LABS: % IRON SATURATION 27.4 % (30-44)
[2019-06-22 07:28] LABS: CALCIUM, TOTAL 8.6 mg/dL (8.8-10.5); CREATININE 5.82 mg/dL (0.60-1.30); MAGNESIUM 1.5 mg/dL (1.80-2.40); PHOSPHORUS 5.9 mg/dL (2.5-4.9); POTASSIUM 5.3 mmol/L (3.5-5.1)
[2019-06-22] MEDS ORDERED: VANCOMYCIN HCL 1 GM/D5% WATER 200 ML IV ONE (08:00)
[2019-06-22] MEDS: HEPARIN SODIUM,PORCINE 5,000 UNITS/ML VIAL SQ SCH ×2 (09:00→20:33)
[2019-06-22] MEDS ORDERED: EPOETIN ALFA 10,000 UNITS/ML VIAL SQ SCH (09:00)
[2019-06-22] MEDS: FAMOTIDINE 20 MG TABLET PO SCH (10:23)
[2019-06-22] MEDS: DOCUSATE SODIUM 100 MG CAPSULE PO SCH ×2 (10:23→20:31)
[2019-06-22] MEDS: VITAMIN B COMP/VIT C/FOLIC ACID CAPSULE PO SCH (10:23)
[2019-06-22] MEDS: LORazepam 0.5 MG TABLET PO PRN ×2 (12:58→21:37)
[2019-06-22] MEDS: QUEtiapine FUMARATE 25 MG TABLET PO SCH ×2 (13:08→20:31)
[2019-06-22] MEDS: TraMADol HCL 50 MG TABLET PO PRN (17:40)
[2019-06-22] MEDS: AmLODIPine BESYLATE 10 MG TABLET PO SCH (18:10)
[2019-06-23] MEDS: TraZODone HCL 100 MG TABLET PO SCH ×2 (00:39→20:53)
[2019-06-23] MEDS: SUMAtriptan SUCCINATE 25 MG TABLET PO PRN (00:39)
[2019-06-23] MEDS: LORazepam 1 MG TABLET PO PRN ×2 (05:24→13:21)
[2019-06-23] MEDS: TraMADol HCL 50 MG TABLET PO PRN ×2 (05:24→13:20)
[2019-06-23 07:10] VITALS: BP 151/64
[2019-06-23 08:47] LABS: VANCOMYCIN,RANDOM 21.5 mcg/mL (25.0-50.0)
[2019-06-23] MEDS: BUMETANIDE 0.25 MG/ML 4 ML VIAL IVP SCH ×2 (08:47→20:52)
[2019-06-23] MEDS: AmLODIPine BESYLATE 10 MG TABLET PO SCH (08:48)
[2019-06-23] MEDS: FAMOTIDINE 20 MG TABLET PO SCH (08:48)
[2019-06-23] MEDS: QUEtiapine FUMARATE 25 MG TABLET PO SCH ×2 (08:48→20:53)
[2019-06-23] MEDS: DOCUSATE SODIUM 100 MG CAPSULE PO SCH ×2 (08:48→20:53)
[2019-06-23] MEDS: VITAMIN B COMP/VIT C/FOLIC ACID CAPSULE PO SCH (08:48)
[2019-06-23] MEDS: HEPARIN SODIUM,PORCINE 5,000 UNITS/ML VIAL SQ SCH ×2 (08:48→20:54)
[2019-06-23 11:38] VITALS: BP 155/77
[2019-06-23 15:55] VITALS: BP 130/76
[2019-06-23 20:50] VITALS: BP 141/82
[2019-06-24 04:00] VITALS: BP 149/90
[2019-06-24] MEDS: LORazepam 1 MG TABLET PO PRN ×2 (04:04→11:56)
[2019-06-24 05:16] LABS: BASOPHILS % (AUTO) 1.3 % (0.0-2.0); EOSINOPHILS % (AUTO) 2.9 % (1.0-6.0); HEMATOCRIT 32.2 % (41-53); HEMOGLOBIN 10.2 g/dL (13.5-17.5); LYMPHOCYTES # (AUTO) 1.4 K/uL (1.0-4.8); LYMPHOCYTES % (AUTO) 26.4 % (22.0-44.0); MEAN CORPUSCULAR HEMOGLOBIN 24.3 pg (26.0-34.0); MEAN CORPUSCULAR HGB CONC 31.8 G/dL (31.0-37.0); MEAN CORPUSCULAR VOLUME 76 fL (80-100); MONOCYTES # (AUTO) 0.8 K/uL (0.1-1.0); MONOCYTES % (AUTO) 15.1 % (2.0-9.0); NEUTROPHILS # (AUTO) 2.9 K/uL (1.8-7.7); NEUTROPHILS % (AUTO) 54.3 % (40.0-70.0); PLATELET COUNT (AUTO) 194 K/uL (150-450); RED BLOOD CELL COUNT(AUTO) 4.21 MIL/uL (4.50-5.90); RED CELL DISTRIBUTION WIDTH 26.4 % (11.5-14.5)
[2019-06-24] MEDS: TraMADol HCL 50 MG TABLET PO PRN (05:23)
[2019-06-24] MEDS: SUMAtriptan SUCCINATE 25 MG TABLET PO PRN (05:32)
[2019-06-24 05:34] LABS: ALBUMIN 2.5 g/dL (3.4-5.0); BILIRUBIN,TOTAL 0.3 mg/dL (0.1-1.0); CALCIUM, TOTAL 8.4 mg/dL (8.8-10.5); CREATININE 6.65 mg/dL (0.60-1.30); POTASSIUM 4.8 mmol/L (3.5-5.1); TOTAL PROTEIN, SERUM 8.1 g/dL (6.4-8.2)
[2019-06-24 06:31] LABS: ERYTHROCYTE SEDIMENTATION RATE 76 MM/HR (0-15)
[2019-06-24 07:54] VITALS: BP 146/82
[2019-06-24] MEDS: QUEtiapine FUMARATE 25 MG TABLET PO SCH (08:09)
[2019-06-24] MEDS: DOCUSATE SODIUM 100 MG CAPSULE PO SCH (08:10)
[2019-06-24] MEDS: FAMOTIDINE 20 MG TABLET PO SCH (09:00)
[2019-06-24] MEDS: VITAMIN B COMP/VIT C/FOLIC ACID CAPSULE PO SCH (09:00)
[2019-06-24] MEDS: AmLODIPine BESYLATE 10 MG TABLET PO SCH (09:00)
[2019-06-24] MEDS: BUMETANIDE 0.25 MG/ML 4 ML VIAL IVP SCH (09:00)
[2019-06-24] MEDS: HEPARIN SODIUM,PORCINE 5,000 UNITS/ML VIAL SQ SCH (09:00)
[2019-06-24] MEDS ORDERED: SODIUM CHLORIDE 0.9% 2,000 ML IV ONE (09:16)
[2019-06-24] MEDS ORDERED: HEPARIN SODIUM,PORCINE 1,000 UNITS/ML VIAL IVP ONE (14:29)
[2019-06-24] MEDS ORDERED: VANCOMYCIN HCL 1 GM/D5% WATER 200 ML IV ONE (15:00)
== END 2019-06-24 14:30 | disposition home or self-care (01) | DRG 425 ==
LOC: EMS 18:48 → 5S 20:31 → 6N 21:10
PROVIDERS: ADMIT Internal Medicine; ATTEND Internal Medicine
PROC: 5A1D70Z Performance of Urinary Filtration, Intermittent, Less than 6 Hours Per Day (ICD-10-PCS; principal; 2019-06-21)
PROC: 5A1D70Z Performance of Urinary Filtration, Intermittent, Less than 6 Hours Per Day (ICD-10-PCS; 2019-06-22)
PROC: 5A1D70Z Performance of Urinary Filtration, Intermittent, Less than 6 Hours Per Day (ICD-10-PCS; 2019-06-23)
PROC: 5A1D70Z Performance of Urinary Filtration, Intermittent, Less than 6 Hours Per Day (ICD-10-PCS; 2019-06-24)
DX: E87.5 Hyperkalemia (principal); E43 Unspecified severe protein-calorie malnutrition; C91.10 Chronic lymphocytic leukemia of B-cell type not having achieved remission; E11.621 Type 2 diabetes mellitus with foot ulcer; E85.9 Amyloidosis, unspecified; M86.8X7 Other osteomyelitis, ankle and foot; I12.0 Hypertensive chronic kidney disease with stage 5 chronic kidney disease or end stage renal disease; N18.6 End stage renal disease; K74.60 Unspecified cirrhosis of liver; F43.10 Post-traumatic stress disorder, unspecified; J44.9 Chronic obstructive pulmonary disease, unspecified; D63.8 Anemia in other chronic diseases classified elsewhere; I89.0 Lymphedema, not elsewhere classified; B19.20 Unspecified viral hepatitis C without hepatic coma; L97.519 Non-pressure chronic ulcer of other part of right foot with unspecified severity; F17.210 Nicotine dependence, cigarettes, uncomplicated; I10 Essential (primary) hypertension; F41.9 Anxiety disorder, unspecified; Z68.23 Body mass index [BMI] 23.0-23.9, adult; Z79.899 Other long term (current) drug therapy; Z85.72 Personal history of non-Hodgkin lymphomas; Z99.2 Dependence on renal dialysis; Z91.19 Patient's noncompliance with other medical treatment and regimen; Z76.5 Malingerer [conscious simulation]; Z91.15 Patient's noncompliance with renal dialysis; Z88.5 Allergy status to narcotic agent; Z91.010 Allergy to peanuts; B95.62 Methicillin resistant Staphylococcus aureus infection as the cause of diseases classified elsewhere; E11.69 Type 2 diabetes mellitus with other specified complication
CPT/HCPCS: 83036; 83540; 83550; 83735; 84100; 85651; 86140; 87340; 93005; 96365; 96375; 99291; G0378; G0480; J0885; J1644; J2060; J2405; J3370; J3490; J7030; J7050